=== PATIENT | female | born 1965 | race African-American/Black ===

== ENCOUNTER 2018-04-26 23:21 | Emergency (ER) | payer MEDICARE, MEDICAID ==
[~2018-04-26] VITALS: Ht 170.2 cm; Wt 127.0 kg
[2018-04-27] MEDS ORDERED: METOCLOPRAMIDE HCL 10MG/2ML VIAL IV ONE (00:30)
[2018-04-27] MEDS ORDERED: DEXT 5% IV PRN (00:45)
[2018-04-27] MEDS ORDERED: WATER IV PRN (00:45)
[2018-04-27] MEDS ORDERED: LABETALOL HCL 100MG TABLET PO ONE (00:45)
[2018-04-27] MEDS ORDERED: LABETALOL HCL IV PRN (00:45)
[2018-04-27 01:45] LABS: CHLORIDE 107 mEq/L (98-107)
[2018-04-27 01:48] LABS: BASOPHILS % 0.7 % (0.0-2.0); EOSINOPHILS % 1.7 % (0.0-5.0); HEMATOCRIT. 39.2 % (36.0-48.0); HEMOGLOBIN. 12.9 g/dL (12.0-16.0); LYMPHOCYTES % 40.3 % (20.0-50.0); MEAN CORPUSCULAR HEMOGLOBIN 30.3 pg (28.0-32.0); MEAN CORPUSCULAR VOLUME 92.4 fL (81.0-99.0); MEAN PLATELET VOLUME 9.9 fl (7.4-10.4); MONOCYTES % 8.4 % (2.0-8.0); NEUTROPHILS % 48.9 % (40.0-76.0); PLATELET 152 x1000/uL (130-400); RED BLOOD CELL COUNT 4.24 mill/uL (4.2-5.4); RED CELL DISTRIBUTION WIDTH 14.1 % (11.6-14.6)
[2018-04-27 01:53] LABS: CREATINE KINASE 160 IU/L (26-192); PROTHROMBIN TIME 9.6 sec (9.1-11.1)
[2018-04-27 01:55] LABS: CREATINE KINASE MB FRACTION 2.4 ng/mL (0.5-3.6)
[2018-04-27] MEDS ORDERED: DIPHENHYDRAMINE 50MG/ML VIAL IV ONE (02:30)
[2018-04-27] MEDS ORDERED: PROCHLORPERAZINE 10MG/2ML VIAL IV PRN (02:30)
[2018-04-27] MEDS ORDERED: AMPICILLIN SOD/SULBACTAM NA 3 G in SODIUM CHLORIDE 0.9% 100 ML IV SCH (02:30)
[2018-04-27] MEDS ORDERED: OXYCODONE HCL 10MG TABLET SR 12HR PO ONE (02:45)
[2018-04-27] MEDS ORDERED: DEXAMETHASONE 4MG/ML 1ML VIAL IV ONE (03:00)
[2018-04-27 03:57] VITALS: BP 122/63
[2018-04-27] MEDS ORDERED: KETOROLAC 30MG/ML VIAL IV ONE (04:00)
== END 2018-04-27 04:39 | disposition home or self-care (01) ==
LOC: ER 23:21
DX: K04.7 Periapical abscess without sinus (principal); I10 Essential (primary) hypertension; E11.9 Type 2 diabetes mellitus without complications
CPT/HCPCS: 36415; 70450; 80053; 82550; 82553; 82962; 83880; 84484; 85025; 85610; 93005; 96365; 96375; 99284; J0295; J1100; J1200; J1885; J2765; J7050; Z7610